=== PATIENT | female | born 1930 | race African-American/Black ===

== ENCOUNTER 2017-11-19 15:51 | Emergency (ER) | payer MEDICARE, OTHER ==
[~2017-11-19] VITALS: Ht 167.6 cm; Wt 55.0 kg
[2017-11-19] MEDS ORDERED: CLONIDINE 0.1MG TABLET PO ONE (16:30)
[2017-11-19 16:44] LABS: BASOPHILS % 1.1 % (0.0-2.0); EOSINOPHILS % 4.3 % (0.0-5.0); HEMATOCRIT. 34.6 % (36.0-48.0); HEMOGLOBIN. 11.5 g/dL (12.0-16.0); LYMPHOCYTES % 37.1 % (20.0-50.0); MEAN CORPUSCULAR HEMOGLOBIN 30.3 pg (28.0-32.0); MEAN CORPUSCULAR VOLUME 90.9 fL (81.0-99.0); MEAN PLATELET VOLUME 8.9 fl (7.4-10.4); MONOCYTES % 11.1 % (2.0-8.0); NEUTROPHILS % 46.4 % (40.0-76.0); PLATELET 171 x1000/uL (130-400); RED BLOOD CELL COUNT 3.81 mill/uL (4.2-5.4); RED CELL DISTRIBUTION WIDTH 13.8 % (11.6-14.6)
[2017-11-19 16:49] LABS: CHLORIDE 108 mEq/L (98-107)
[2017-11-19 17:36] VITALS: BP 133/63
== END 2017-11-19 18:03 | disposition home or self-care (01) ==
LOC: ER 15:51
DX: I16.0 Hypertensive urgency (principal); R00.1 Bradycardia, unspecified; I45.10 Unspecified right bundle-branch block
CPT/HCPCS: 36415; 80053; 85025; 93005; 99285